=== PATIENT | male | born 1945 | race Caucasian/White ===

== ENCOUNTER 2016-11-04 03:55 | Emergency (ER) | payer MEDICARE, OTHER ==
[~2016-11-04] VITALS: Ht 182.9 cm; Wt 110.0 kg
[~2016-11-04 03:55] MED LIST: ATOR20TA PO; B12-1CHW CHEW; METO25 PO
[2016-11-04] MEDS ORDERED: ONDANSETRON ODT 4 MG TAB PO ONE (04:45)
[2016-11-04] MEDS ORDERED: METO25TA3 PO (05:00)
[2016-11-04] MEDS ORDERED: ATOR40TA16 PO (05:00)
[2016-11-04 05:07] VITALS: BP 129/62; PULSE 101; RESP 19; TEMP 97.6; O2SAT 96
--- NOTE | 2016-11-04 05:29 | PD ---
HPI Chief Complaint: Psychiatric Symptoms Time Seen by Provider: 05:23 Travel History International Travel<30 days: No Contact w/Intl Traveler<30days: No Traveled to known affect area: No History of Present Illness HPI 70-year-old white male presents as a transfer from [facility] in [place] as a ER to ER transfer to our psychiatrist. The patient allegedly had called 911 after drinking a large amount of alcohol. The patient states that this was the anniversary of his 's on the eighth of this past month. He states that he was feeling very melancholy as he typically did at that time of year. He states that he had vomited multiple times and laid on the floor and called 911 for help. When the arrived the patient made some suggestive statements that were of a suicidal nature. The patient states that he never intended to comply that he was suicidal. He states that he is not suicidal but only wanted help due to his alcohol intake. He denies any homicidal ideation. He states that he would just merely like to go home. He was medically cleared and transferred here to [place] for psychological evaluation. The patient still has had some nausea. He has had an episode of vomiting here in the ER. He states he feels somewhat dehydrated. He denies any fever or chills. No chest pain or shortness of breath. Positive nausea and vomiting. No abdominal pain. No urinary symptoms. No toxic ingestions. PFSH Past Medical History Narrative Medical Atrial fibrillation, hypercholesterolemia, DVT, PE, CVA, decreased hearing Atrial Fibrillation: Yes High Cholesterol: Yes Diminished Hearing: Yes ([place]) Deep Vein Thrombosis: Yes (DVT/PE) Hiatal Hernia: Yes Hypertension: Yes Implanted Vascular Access Dvce: Yes (AC FILTER) Respiratory: Yes (PE) Immunizations Current: Yes Tetanus Vaccination: < 5 Years Influenza Vaccination: No Past Surgical History Narrative Surgical IVC filter, right knee arthroscopy, femur fracture with ORIF, right inguinal herniorrhaphy, tonsils and adenoids Abdominal Surgery: Yes (HERNIA REPAIR ) Tonsillectomy: Yes Other Surgery: Yes (HYDROCEL ON TESTICLE) Social History Alcohol Use: Yes (DAILY) Tobacco Use: No Substance Use: Yes (ALCOHOL) Allergies-Medications (Allergen,Severity, Reaction): Coded Allergies: Aspirin (Verified Allergy, Unknown, 11/04/16) Niacin (Verified Allergy, Unknown, 11/04/16) Reported Meds & Prescriptions Reported Meds & Active Scripts Active Reported Atorvastatin (Atorvastatin Calcium) 40 Mg Tab 40 Mg PO DAILY Metoprolol Tartrate 25 Mg Tab 12.5 Mg PO BID Review of Systems Except as stated in HPI: all other systems reviewed are Neg Psychiatric: Positive: Depression, Mood Disorder, Substance Abuse, No: Anxiety , Suicidal Ideations, Disorder of Thought, Homicidal Ideation Physical Exam Narrative GENERAL: Well-nourished, well-developed patient. SKIN: Warm and dry. HEAD: Normocephalic and atraumatic. EYES: No scleral icterus. No injection or drainage. ENT: No nasal drainage noted. Mucous membranes pink. Airway patent. NECK: Supple, trachea midline. Moves head freely without obvious discomfort. CARDIOVASCULAR: Regular rate and rhythm 3/6 mitral murmur, gallops, or rubs. RESPIRATORY: Breath sounds equal bilaterally. No accessory muscle use. GASTROINTESTINAL: Abdomen soft, non-tender, nondistended. EXTREMITIES: No cyanosis. The left leg is mildly larger than the right leg. He has +1 edema in the ankle. BACK: Nontender without obvious deformity. No CVA tenderness. NEURO: Patient is alert and oriented. no sensorimotor deficits. Nonfocal. Normal speech. PSYCH: No delusions. No auditory or visual hallucinations. Data Data Last Documented VS Vital Signs Date Time Temp Pulse Resp B/P Pulse Ox O2 Delivery O2 Flow Rate FiO2 11/04/16 05:07 97.6 101 19 129/62 96 Room Air Orders Ondansetron Odt (Zofran Odt) (11/04/16 04:45) Psych Screen (11/04/16 04:39) [facility] Medical Decision Making Medical Screen Exam Complete: Yes Emergency Medical Condition: Yes Medical Record Reviewed: Yes Interpretation(s) Laboratory tests reviewed from ER visit earlier today. Differential Diagnosis MDM: High Differential diagnoses: Schizophrenia, schizoaffective disorder, bipolar, anxiety, depression, adjustment reaction, mood disorder NOS, ODD, depressive disorder NOS, dementia, dementia with agitation, psychosis NOS, substance induced mood disorder, intermittent explosive disorder, Asperger syndrome, infection,electrolyte abnormality, malingering. Narrative Course Mental health screening discussed with the patient. Psychiatric screen ordered. Patient is given Zofran 4 mg sublingual. This is followed by by mouth fluid challenge. The patient is medically cleared. I suspect the patient is not truly suicidal. He is merely had a period of substance induced mood disorder from his alcohol intoxication. The patient now appears more sober and recants any suicidal statements. This is alcohol induced mood disorder Diagnosis Primary Impression: Alcohol-induced mood disorder Condition: Stable Yassine Baez Nov 04, 2016 05:29
[2016-11-04 06:00] VITALS: BP 149/76; PULSE 75; RESP 18; O2SAT 97
--- NOTE | 2016-11-04 07:23 | PD.CONS ---
Provisional Diagnosis Admission Date 11/04/2016 [place] I. 1. Alcohol dependence with alcohol-induced mood disorder [place] II. Deferred [place] V. GAF is 30 presently History of Present Illness Service Psychiatry Consult Requested By Emergency department Reason for Consult Krystal matute Primary Care Physician [facility] HPI Mr. Qiu is a 70-year-old male with no reported past psychiatric history besides alcohol use issues who presents under a BA by [employer] alleging pt told officer he was "ready to ." Patient initially presented to outside hospital and was sent here in transfer. I reviewed the clinical documents sent with the patient. Reviewing our electronic medical record, I note the patient was seen in consultation by nurse practitioner Derrek in February of last year. Patient seen and examined. Chart reviewed. Case discussed with nurse in the J- pod. On my examination today, the patient denies any suicidal ideation. He is presently clinically sober. He says that he wants to live for his granddaughter. He says that he called 911 because he was feeling physically ill because "I had quite a bit to drink and was throwing up." He says that he told the responding paramedics "I'm afraid to but scared to that I won 't []." He denies that this statement was suicidal in nature. He does admit to feeling frustrated and somewhat depressed that he cannot work anymore but denies mood symptoms otherwise. He denies any audiovisual hallucinations. I can elicit no feelings of paranoia, ideas of reference, thought insertion or withdrawal or other delusional material. The remainder of the psychiatric ROS is negative. With patient's permission I've obtain collateral from his daughter Griffin who lives out of state. She notes that the patient has been living alone in "deplorable conditions" and has been drinking heavily and falling a lot. She is worried that he is quite depressed. She does not know that the patient has a history of suicide attempts but cannot reassure me that he might not be thinking along these lines now. She notes that he has no significant history of sobriety and the family has contemplated [place] acting him in the past. Past psychiatric history: Patient denies any history of psychiatric diagnosis. He denies any history of inpatient or outpatient psychiatric treatment. He denies any history of suicide attempts. Review of Systems ROS Limitations: Poor Historian Other Mild tremor. No other physical complaints. Past Family Social History Coded Allergies: Aspirin (Verified Allergy, Unknown, 11/04/16) Niacin (Verified Allergy, Unknown, 11/04/16) Past Medical History See EMR Reported Medications Atorvastatin 40 Mg Tab40 Mg PO DAILY #30 TAB Ref 0 11/04/16 Metoprolol Tartrate 25 Mg Tab12.5 Mg PO BID #60 TAB Ref 0 11/04/16 See EMR Family History Patient denies any family history of serious mental illness or suicide. Social History Patient reports that his 22 years ago this past Sunday. She was his second . He has 3 years of college. 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 He says that he was forced to retire because he couldn't do the work anymore. He has 2 children a son age 37 and a daughter age 40. He has grandchildren. Denies any access to guns or firearms. He is a Jainism. With regards to his substance use he says that he has been drinking a third of a bottle of wine and about a seventh of a bottle of whiskey daily. He does endorse a history of DUIs. He denies any history of DTs or seizures. His longest sober time was about 7 weeks as a New Year's resolution. Denies any history of drug rehabilitation. Patient's Strengths (min. 2) In a monitored setting. Verbally fluent. Physical Exam Physical examination completed by ED provider. On my examination today, patient is mildly tremulous. He is mildly diaphoretic. No mydriasis or other signs of withdrawal. No other abnormal motor movements noted. Labs and vital signs reviewed. Vital Signs Vital Signs Date Time Temp Pulse Resp B/P Pulse Ox O2 Delivery O2 Flow Rate FiO2 11/04/16 05:07 97.6 101 19 129/62 96 Room Air Lab Results OSH labs: CBC mild leukopenia. Nl platelets. CMP mildly elevated AST. UA bland. EtOH 278. Mental Status Examination Patient is in hospital gown. He is fairly disheveled. He is awake and alert and oriented to person and hospital at least. Motor exam as above. Speech is somewhat rambling but otherwise within normal limits for rate, tone and volume. Language and fund of knowledge seem average. Mood is frustrated and affect is restricted and dysphoric. Thought process fairly linear. No loosening of associations. No delusions. Denies audiovisual hallucinations. Denies suicidal or homicidal ideation but it is unclear that he is reliable to contract for safety. Insight and judgment are poor. Assessment & Plan Problem List: (1) Alcohol dependence with alcohol-induced mood disorder ICD Code: F10.24 Assessment & Plan This is a 70-year-old male with psychiatric history as detailed above who presents under a [place] act and transfer from outside hospital. On my examination today, the patient is clinically sober. He denies suicidal ideation but says that he is depressed and frustrated because he can no longer work. He also is mourning the loss of his 22 years ago as the anniversary of her passing just passed. He is drinking more heavily. Collateral from daughter is concerning for an affective diathesis, possibly substance induced. He is also clearly not attending to his alcohol use disorder. The patient is in desperate need of dual diagnosis treatment to address his mood and substance use issues together. Inasmuch as we do not offer that service here I will plan to refer the patient to another hospital with dual diagnosis services. I will place the patient on a CIWA scale with Ativan in the meantime for the management of any withdrawal. Rice act remains in place and the patient will be retained in the J-pod until the patient can be transferred to a dual diagnosis unit. Pete Barton MD Nov 04, 2016 07:23
[2016-11-04] MEDS ORDERED: FLUMAZENIL 0.5 MG/5 ML VIAL IV PUSH PRN (08:30)
[2016-11-04] MEDS ORDERED: LORazepam 2 MG TAB PO PRN (08:30)
[2016-11-04] MEDS ORDERED: LORazepam 1 MG TAB PO PRN (08:30)
[2016-11-04] MEDS ORDERED: LORazepam 2 MG/ML VIAL IV PUSH PRN ×4 (08:30)
[2016-11-04 10:05] VITALS: BP 129/62
== END 2016-11-04 10:00 ==
LOC: NEPJ 03:55
DX: F10.24 Alcohol dependence with alcohol-induced mood disorder (principal); D72.819 Decreased white blood cell count, unspecified; I48.91 Unspecified atrial fibrillation; E78.00 Pure hypercholesterolemia, unspecified; I10 Essential (primary) hypertension; Z86.718 Personal history of other venous thrombosis and embolism
CPT/HCPCS: 99285